=== PATIENT | female | born 1950 | race Caucasian/White ===

== ENCOUNTER 2023-11-15 17:31 | Emergency (ER) | payer OTHER ==
[~2023-11-15] VITALS: Ht 170.2 cm; Wt 117.9 kg
[2023-11-15 18:16] VITALS: BP_SYST 143; PULSE 64; RESP 18; TEMP 97.3; O2SAT 98
[2023-11-15 19:10] VITALS: BP_SYST 143; PULSE 64; RESP 18; TEMP 97.3; O2SAT 98
== END 2023-11-15 19:10 | disposition home or self-care (01) ==
LOC: SED 17:31
DX: S09.90XA Unspecified injury of head, initial encounter (principal); Z79.899 Other long term (current) drug therapy; W18.2XXA Fall in (into) shower or empty bathtub, initial encounter; Y93.89 Activity, other specified; Y92.89 Other specified places as the place of occurrence of the external cause; Y99.8 Other external cause status
CPT/HCPCS: 99281